=== PATIENT | male | born 1960 | race Caucasian/White ===

== ENCOUNTER 2025-08-02 16:28 | Emergency (ER) | payer MEDICARE, SELFPAY ==
[2025-08-02 16:52] VITALS: BP 141/77; PULSE 100; RESP 16; TEMP 36.7; O2SAT 98; BMI 29.5
--- OUTSIDE RECORDS SUMMARY | 2025-08-02 17:10 | XMS_ITS | Clinical Summary ---
Author Organization [facility] Address [address] [place] [address] Phone Care Team Providers Care Program Attendant Name Role Phone William JENSEN, Pranay Primary Care Provider + [phone] Soumya JENSEN, Colin Zhu Unavailable + [phone] Reason for Visit and Chief Complaint The Chief Complaint is: 1st PO Right TKA Problems Includes: Problems addressed during this encounter and other active Problems All Visits Onset Date Resolved Date Provider Condition S tatus Joint Pain Right Knee 05/24/2021 Colin Dooley MD Active Last Documented On 1 9:14AM ; [facility] Plan of Treatment overall the patient is very pleased with his knee surgery, finishing up physical therapy next week. he was encouraged to ease into activities such as golf, traveling walking, gym. We will plan for follow-up one year postop - Last Documented On 10/21/2022 9:22AM ; [facility] Assessments Includes: Assessments from this encounter Findings 11 weeks status post right TKA - Last Documented On 10/21/2022 9:22AM ; [facility] Medical Equipment - Implanted Devices Includes: Current Devices No Medical Equipment Recorded Medications Includes: Medications discussed during this encounter and other current Medications Current Medications (continue as prescribed) Atorvastatin Calcium 20 MG Oral Tablet 07/22/2023 Pr ovider: Pranay Thomas MD Diagnosis: Last Documented On 3 8:57AM By Trevor Boss ; [facility], [facility] Past Medications on file Acetaminophen 500 MG Oral Tablet 08/12/2022 - 09/11/2022 Provider: Colin Dooley MD Diagnosis: 2 three times a day Last Documented On 2 1:16PM By Filiberto Dooley ; [facility], [facility] Aspirin 81 MG Oral Tablet Delayed Release 08/12/2022 - 09/23/2022 Provider: Colin Dooley MD Diagnosis: twice a day Last Documented On 1:32PM By Filiberto Dooley ; [facility] Cefadroxil 500 MG Oral Capsule 08/12/2022 - 08/15/2022 Provider: Colin hinojosa MD Diagnosis: twice a day Last Documented On 1:32PM By Filiberto Dooley ; [facility] Colace 100 MG Oral Capsule 08/12/2022 - 11/10/2022 Provider: Colin hinojosa MD Diagnosis: 1-2 tabs daily Last Documented On 1:32PM By Filiberto Dooley ; [facility] Meloxicam 15 MG Oral Tablet 08/12/2022 - 09/11/2022 Provider: Colin hinojosa MD Diagnosis: once a day Last Documented On 1:32PM By Filiberto Dooley ; [facility] Ondansetron HCl 4 MG Oral Tablet 08/12/2022 - 08/17/2022 Provider: Colin Dooley MD Diagnosis: [id number] Last Documented On 1:32PM By Filiberto Dooley ; [facility] oxyCODONE HCl 5 MG Oral Tablet 08/12/2022 - 08/17/2022 Provider: Colin hinojosa MD Diagnosis: 1-2 po q 4-6h Last Documented On 1:32PM By Filiberto Dooley ; [facility] traMADol HCl 50 MG Oral Tablet 08/12/2022 - 08/17/2022 Provider: Colin hinojosa MD Diagnosis: 1-2 po q 4-6h Last Documented On 1:32PM By Filiberto Dooley ; [facility] Diclofenac Sodium 75 MG Oral Tablet Delayed Release 10/29/2021 - 12/28/2021 Provider: Colin hinojosa MD Diagnosis: once a day with food Last Documented On 9:36AM By Pranay Wright ; [facility] Diclofenac Sodium 75 MG Oral Tablet Delayed Release 10/07/2021 - 11/06/2021 Provider: Colin hinojosa MD Diagnosis: twice a day Last Documented On 2 3:11PM By Filiberto Dooley ; [facility] Medications Administered Includes: Administered Medications from this encounter No Administered Medications Recorded Results Includes: Results discussed during this encounter No Results Recorded For Specified Dates History of Present Illness Includes: History of Present Illness from this encounter CINDY Landers is a 62 year old male. - Allergy list reviewed - Problem list reviewed - Medication list reviewed Social History Description Last Updated Not exercising regularly 07/28/2023 Last Documented On 3 8:39AM ; [facility] Not using alcohol 07/28/2023 Last Documented On 3 8:39AM ; [facility] Not using drugs 07/28/2023 Last Documented On 3 8:39AM ; [facility] Tobacco non-user 10/21/2022 Last Documented On 3 9:22AM ; [facility] No recent change in diet 10/21/2022 Last Documented On 3 9:22AM ; [facility] Not a current smoker. 10/21/2022 Last Documented On 3 9:22AM ; [facility] Caffeine use 05/24/2021 Last Documented On 3 8:39AM ; [facility] Smoking Status Unknown Procedures and Surgical History Includes: Procedures from this encounter Procedures Code Diagnosis Performing Provider Service L ocation Service Date use of tobacco assessment performed 1000F Last Documented On 3 8:39AM ; [facility] body mass index not documented system reason 300 8F Last Documented On 3 9:05AM ; [facility] Medical History Includes: Medical History addressed during this encounter Description Last Updated Recent immunization for flu 07/15/2022 1 11/05/2021 Last Documented On 3 8:39AM ; [facility] No recent immunization for pneumococcal pneumonia 05/24/2021 Last Documented On 3 8:39AM ; [facility] Sleep Apnea 05/24/2021 Last Documented On 3 8:39AM ; [facility] Family History Includes: Family History addressed during this encounter Description Last Updated Family history of cancer 05/24/2021 Last Documented On 3 8:39AM ; [facility] Review of Systems Includes: Review of Systems from this encounter Systemic: Not feeling tired, no recent weight loss, and no recent weight gain. Head: No headache and no sinus pain. Eyes: No vision problems, no Cataracts, no Glasses/Contacts, and no Glaucoma. Otolaryngeal: No hearing loss and no tinnitus. Cardiovascular: No chest pain or discomfort, no palpitations, no Hypertension, and no High Cholesterol. Pulmonary: No daytime asthma symptoms and no chronic cough. No wheezing. Gastrointestinal: No heartburn and no abdominal pain. No Indigestion, no Acid Reflux, no Peptic Ulcer, no GI Stomach Bleed, and no Ulcers. Endocrine: No hot flashes, no muscle weakness, no Diabetes, no Hypothyroid, and no Hyperthyroid. Hematologic: No easy bleeding, no tendency for easy bruising, and no Anemia. Musculoskeletal: No Arthritis and no lower back pain. No soft tissue swelling and no localized joint pain. Neurological: No dizziness, no convulsions, and no numbness. Psychological: No anxiety, no emotional lability, no depression, and no insomnia. Not crying for no reason. Skin: No dry skin. No Ulcers, no Scars, and no rash. Allergic and Immunologic: No complaint of seasonal allergic reaction. Reviewed on 10-21-2022 Mental Status Includes: Mental Status from this encounter Description No anxiety Functional Status Includes: Functional Status from this encounter No Functional Status Recorded Physical Exam Includes: Physical Exam from this encounter Allergies Includes: Active Allergies No Known Allergies Encounters Encounter Provider Location Date Check-In Time Check- Out Time Diagnosis Post Op Aldo Olivas PA-C [facility] 3 8:36AM 9:23AM Insurance Includes: Active Insurance Policies Plan Name Member ID Group # Subscriber Relationship Effect blake Dates - [facility] [id number] Bobby Landers Jr [facility] 09/14/2020 - Unknown Clinical Notes Includes: Clinical Notes from this encounter * Progress note Date Encounter Last Documented by 10/21/2022 Post Op Last documented on 10/21/2022; 9:22 AM, Aldo Olivas PA-C; [facility] Active Problems & Conditions - Joint Pain in the Right Knee Chief Complaint The Chief Complaint is: 1st PO Right TKA. Referred Here Referred by. History of Present Illness Bobby Landers is a 62 year old male. - Allergy list reviewed - Problem list reviewed - Medication list reviewed Current Medication - Colace 100 MG Oral Capsule 1-2 tabs daily, 30 days, 2 refills Past Medical/Surgical History Reported: Immunization History: Recent immunization for flu 07/15/2022. No recent immunization for pneumococcal pneumonia. Diagnoses: Sleep Apnea Social History Not a current smoker. Current diet: No recent change in diet. Caffeine use: Caffeine use. Tobacco use: Tobacco non-user. Alcohol: Not using alcohol. Drug Use: Not using drugs. Habits: Not exercising regularly. Allergies - No Known Allergies Family History Cancer Review Of Systems Systemic: Not feeling tired, no recent weight loss, and no recent weight gain. Head: No headache and no sinus pain. Eyes: No vision problems, no Cataracts, no Glasses/Contacts, and no Glaucoma. Otolaryngeal: No hearing loss and no tinnitus. Cardiovascular: No chest pain or discomfort, no palpitations, no Hypertension, and no High Cholesterol. Pulmonary: No daytime asthma symptoms and no chronic cough. No wheezing. Gastrointestinal: No heartburn and no abdominal pain. No Indigestion, no Acid Reflux, no Peptic Ulcer, no GI Stomach Bleed, and no Ulcers. Endocrine: No hot flashes, no muscle weakness, no Diabetes, no Hypothyroid, and no Hyperthyroid. Hematologic: No easy bleeding, no tendency for easy bruising, and no Anemia. Musculoskeletal: No Arthritis and no lower back pain. No soft tissue swelling and no localized joint pain. Neurological: No dizziness, no convulsions, and no numbness. Psychological: No anxiety, no emotional lability, no depression, and no insomnia. Not crying for no reason. Skin: No dry skin. No Ulcers, no Scars, and no rash. Allergic and Immunologic: No complaint of seasonal allergic reaction. Reviewed on 10-21-2022 Physical Findings Incision well healed, well-appearing scar Mild residual swelling, mild effusion Knee extension 0- Knee flexion 127- TA/Gastroc/Quad firing Sensation intact to light touch throughout Palpable pulses DP/PT Assessment 11 weeks status post right TKA Plan overall the patient is very pleased with his knee surgery, finishing up physical therapy next week. he was encouraged to ease into activities such as golf, traveling walking, gym. We will plan for follow-up one year postop Notes This dictation was done with voice recognition software and may contain errors and omissions. Practice Management Use of tobacco assessment performed; Body mass index not documented system reason. Care Team - Pranay Thomas MD - RESOURCE ROOM SPECIAL EDUCATION TEACHER
--- OUTSIDE RECORDS SUMMARY | 2025-08-02 17:10 | XMS_ITS | Clinical Summary ---
Author Organization [facility] Address [address] [place] [address] Phone Care Team Providers Care Language Interpreter Name Role Phone William JENSEN, Pranay Primary Care Provider [phone] Soumya JENSEN, Colin Zhu Unavailable + [phone] Reason for Referral Date Encounter Description Provider Reason for Referral 09/04/22 Post Op Aldo Olivas PA-C Referral To Physician - see pcp for bp Reason for Visit and Chief Complaint The Chief Complaint is: 1st PO Right TKA Problems Includes: Problems addressed during this encounter and other active Problems All Visits Onset Date Resolved Date Provider Condition S tatus Joint Pain Right Knee 05/24/2021 Colin Dooley MD Active Last Documented On 1 9:14AM ; [facility] Plan of Treatment overall the patient is pleased with his progress, expressed my concern with his lack of flexion today, he is limited to 95? for me, reports 104? with physical therapy. We discussed using pain medication as a tool for achieving further progress with physical therapy. He is at risk for permanent stiffness to satisfaction. He reports that he is following her 200 feet per day rule - Last Documented On 09/04/2022 2:08PM ; [facility] Instructions to patient Lose weight Last Documented On 2 1:35PM ; [facility] Assessments Includes: Assessments from this encounter Findings 3 weeks status post right TKA - Last Documented On 09/04/2022 2:08PM ; [facility] Instructions Includes: Instructions from this encounter Instructions to patient Lose weight Last Documented On 2 1:35PM ; [facility] Medical Equipment - Implanted Devices Includes: Current Devices No Medical Equipment Recorded Medications Includes: Medications discussed during this encounter and other current Medications Current Medications (continue as prescribed) Atorvastatin Calcium 20 MG Oral Tablet 07/22/2023 Pr ovider: Pranay Thomas MD Diagnosis: Last Documented On 8:57AM By Trevor Boss ; [facility] Past Medications on file Acetaminophen 500 MG Oral Tablet 08/12/2022 - 09/11/2022 Provider: Colin Dooley MD Diagnosis: 2 three times a day Last Documented On 1:16PM By Filiberto Dooley ; [facility] Aspirin 81 MG Oral Tablet Delayed Release 08/12/2022 - 09/23/2022 Provider: Colin Dooley MD Diagnosis: twice a day Last Documented On 1:32PM By Filiberto Dooley ; [facility] Cefadroxil 500 MG Oral Capsule 08/12/2022 - 08/15/2022 Provider: Colin hinojosa MD Diagnosis: twice a day Last Documented On 1:32PM By Filiberto Dooley ; [facility] Colace 100 MG Oral Capsule 08/12/2022 - 11/10/2022 Provider: Colin hinojosa MD Diagnosis: 1-2 tabs daily Last Documented On 1:32PM By Filiberto Dooley ; [facility] Meloxicam 15 MG Oral Tablet 08/12/2022 - 09/11/2022 Provider: Colin hinojosa MD Diagnosis: once a day Last Documented On 1:32PM By Filiberto Dooley ; [facility] Ondansetron HCl 4 MG Oral Tablet 08/12/2022 - 08/17/2022 Provider: Colin Dooley MD Diagnosis: [id number] Last Documented On 1:32PM By Filiberto Dooley ; [facility] oxyCODONE HCl 5 MG Oral Tablet 08/12/2022 - 08/17/2022 Provider: Colin hinojosa MD Diagnosis: 1-2 po q 4-6h Last Documented On 1:32PM By Filiberto Dooley ; [facility] traMADol HCl 50 MG Oral Tablet 08/12/2022 - 08/17/2022 Provider: Colin hinojosa MD Diagnosis: 1-2 po q 4-6h Last Documented On 2 1:32PM By Filiberto Dooley ; [facility] Diclofenac Sodium 75 MG Oral Tablet Delayed Release 10/29/2021 - 12/28/2021 Provider: Colin hinojosa MD Diagnosis: once a day with food Last Documented On 2 9:36AM By Pranay Wright ; [facility] Diclofenac Sodium 75 MG Oral Tablet Delayed Release 10/07/2021 - 11/06/2021 Provider: Colin hinojosa MD Diagnosis: twice a day Last Documented On 2 3:11PM By Filiberto Dooley ; [facility] Medications Administered Includes: Administered Medications from this encounter No Administered Medications Recorded Vital Signs Includes: Vital Signs from this encounter Vital Name 09/04/2022 01:46P Blood Pressure Sitting (mmHg) 124/76 Pulse Rate-Sitting (bpm) 103 Height (in) 65 Weight (lb) 190 Body Mass Index 31.6 Body Surface Area 1.9 Note: ck Last Documented: On 09/04/2022 1:46PM ; [facility] Results Includes: Results discussed during this encounter No Results Recorded For Specified Dates History of Present Illness Includes: History of Present Illness from this encounter CINDY Landers is a 61 year old male. - Allergy list reviewed - Problem list reviewed - Medication list reviewed Social History Description Last Updated Not exercising regularly 07/28/2023 Last Documented On 2 1:35PM ; [facility] Not using alcohol 07/28/2023 Last Documented On 2 1:35PM ; [facility] Not using drugs 07/28/2023 Last Documented On 2 1:35PM ; [facility] Tobacco non-user 09/04/2022 Last Documented On 2 2:08PM ; [facility] No recent change in diet 09/04/2022 Last Documented On 2 2:08PM ; [facility] Not a current smoker. 09/04/2022 Last Documented On 2 2:08PM ; [facility] Non-smoker 05/24/2021 Last Documented On 2 1:35PM ; [facility] Caffeine use 05/24/2021 Last Documented On 2 1:35PM ; [facility] No recent change in diet 05/24/2021 Last Documented On 2 1:35PM ; [facility] Not a current smoker. 05/24/2021 Last Documented On 2 1:35PM ; [facility] Smoking Status Unknown Procedures and Surgical History Includes: Procedures from this encounter Procedures Code Diagnosis Performing Provider Service L ocation Service Date use of tobacco assessment performed 1000F Last Documented On 2 1:35PM ; [facility] referral to physician see pcp for bp Last Documented On 2 1:35PM ; [facility] Medical History Includes: Medical History addressed during this encounter Description Last Updated Recent immunization for flu 07/15/2022 1 11/05/2021 Last Documented On 2 2:08PM ; [facility] No recent immunization for pneumococcal pneumonia 05/24/2021 Last Documented On 2 1:35PM ; [facility] Sleep Apnea 05/24/2021 Last Documented On 2 1:35PM ; [facility] Family History Includes: Family History addressed during this encounter Description Last Updated Family history of cancer 05/24/2021 Last Documented On 2 1:35PM ; [facility] Review of Systems Includes: Review of Systems [...] Immunologic: No complaint of seasonal allergic reaction. Mental Status Includes: Mental Status from this encounter Description No anxiety Functional Status Includes: Functional Status from this encounter No Functional Status Recorded Physical Exam Includes: Physical Exam from this encounter Immunizations Includes: Immunizations addressed during this encounter Vaccine Dose # Date Site Reaction(s) Status Source Influenza 1 07/15/2022 Complete (Reported) Patient Last Documented On 2 1:46PM ; [facility] PCV (Pneumovax 23) 1 09/04/2022 Complete (Refused - Patient objection) [facility] Last Documented On 2 1:46PM ; [facility] Allergies Includes: Active Allergies No Known Allergies Encounters Encounter Provider Location Date Check-In Time Check- Out Time Diagnosis Post Op Aldo Olivas PA-C [facility] 2 1:35PM 2:18PM Insurance Includes: Active Insurance Policies Plan Name Member ID Group # Subscriber Relationship Effect blake Dates 1 - [facility] [id number] Bobby Landers Self 09/14/2020 - Unknown Clinical Notes Includes: Clinical Notes from this encounter * Progress note Date Encounter Last Documented by 09/04/2022 Post Op Last documented on 09/04/2022; 2:08 PM, Aldo Olivas PA-C; [facility] Active Problems & Conditions - Joint Pain in the Right Knee Chief Complaint The Chief Complaint is: 1st PO Right TKA. Referred Here Referred by. History of Present Illness Bobby Landers is a 61 year old male. - Allergy list reviewed - Problem list reviewed - Medication list reviewed Current Medication - Acetaminophen 500 MG Oral Tablet 2 three times a day, 30 days, 0 refills - Aspirin 81 MG Oral Tablet Delayed Release twice a day, 42 days, 0 refills - Colace 100 MG Oral Capsule 1-2 tabs daily, 30 days, 2 refills - Meloxicam 15 MG Oral Tablet once a day, 30 days, 0 refills Past Medical/Surgical History Reported: Immunization History: Recent immunization for flu 07/15/2022. No recent immunization for pneumococcal pneumonia. Diagnoses: Sleep Apnea Social History Not a current smoker. Not a current smoker. Current diet: No recent change in diet. No recent change in diet. Caffeine use: Caffeine use. Tobacco use: Tobacco non-user and non-smoker. Alcohol: Not using alcohol. Drug Use: Not [...] Immunologic: No complaint of seasonal allergic reaction. Physical Findings - Vitals taken 09/04/2022 01:46 pm ck BP-Sitting 124/76 mmHg Pulse Rate-Sitting 103 bpm Height 65 in Weight 190 lbs Body Mass Index 31.6 kg/m2 Body Surface Area 1.9 m2 Standard Measurements: - Patient was overweight. Incision well healed without erythema/purulence/drainage Mild residual swelling, mild to moderate effusion Knee extension 2- Knee flexion 95- TA/Gastroc/Quad firing Sensation intact to light touch throughout Palpable pulses DP/PT Tests three-view x-ray of the right knee taken today demonstrates well-appearing TKA Assessment 3 weeks status post right TKA Therapy - Referral to physician see pcp for bp. Vaccinations - Influenza Dose #1 Status: Prev Hist Date: 07/15/2022 - PCV (Pneumovax 23) Dose #1 Status: Refused Patient Objection Date: 09/04/2022 Counseling/Education - Lose weight Plan overall the patient is pleased with his progress, expressed my concern with his lack of flexion today, he is limited to 95- for me, reports 104- with physical therapy. We discussed using pain medication as a tool for achieving further progress with physical therapy. He is at risk for permanent stiffness to satisfaction. He reports that he is following her 200 feet per day rule Notes This dictation was done with voice recognition software and may contain errors and omissions. Practice Management Use of tobacco assessment performed. Care Team - Pranay Thomas MD - CORPORATE SCHEDULER
--- OUTSIDE RECORDS SUMMARY | 2025-08-02 17:10 | XMS_ITS | Clinical Summary ---
Author Organization [facility] Address [address] [place] [address] Phone Care Team Providers Care Turf Grower Name Role Phone William JENSEN, Pranay Primary Care Provider + [phone] Soumya JENSEN, Colin Mathews + [phone] Reason for Visit and Chief Complaint The Chief Complaint is: 1st PO Right TKA Problems Includes: Problems addressed during this encounter and other active Problems All Visits Onset Date Resolved Date Provider Condition S tatus Joint Pain Right Knee 05/24/2021 Colin Dooley MD Active Last Documented On 1 9:14AM ; [facility] Plan of Treatment overall the patient is pleased with his progress, his range of motion is improving. Today we discussed the importance of continued efforts with physical therapy. We will plan for follow-up4 weeks for reevaluation - Last Documented On 12/02/2023 6:54PM ; [facility] Instructions to patient Lose weight Last Documented On 3 9:49AM ; [facility] Assessments Includes: Assessments from this encounter Findings - Overweight - Last Documented On 12/02/2023 6:54PM ; [facility] 6 week status post right TKA - Last Documented On 12/02/2023 6:54PM ; [facility], [facility] Instructions Includes: Instructions from this encounter Instructions to patient Lose weight Last Documented On 3 9:49AM ; [facility], [facility] Medical Equipment - Implanted Devices Includes: Current Devices No Medical Equipment Recorded Medications Includes: Medications discussed during this encounter and other current Medications Current Medications (continue as prescribed) Atorvastatin Calcium 20 MG Oral Tablet 07/22/2023 Pr ovider: Pranay Thomas MD Diagnosis: Last Documented On 3 8:57AM By Trevor Boss ; [facility] Past Medications on file Acetaminophen 500 MG Oral Tablet 08/12/2022 - 09/11/2022 Provider: Colin Dooley MD Diagnosis: 2 three times a day Last Documented On 1:16PM By Filiberto Dooley ; [facility], [facility] Aspirin 81 MG Oral Tablet Delayed Release 08/12/2022 - 09/23/2022 Provider: Colin Dooley MD Diagnosis: twice a day Last Documented On 1:32PM By Filiberto Dooley ; [facility], [facility] Cefadroxil 500 MG Oral Capsule 08/12/2022 - 08/15/2022 Provider: Colin hinojosa MD Diagnosis: twice a day Last Documented On 1:32PM By Filiberto Dooley ; [facility], [facility] Colace 100 MG Oral Capsule 08/12/2022 - 11/10/2022 Provider: Colin hinojosa MD Diagnosis: 1-2 tabs daily Last Documented On 1:32PM By Filiberto Dooley ; [facility], [facility] Meloxicam 15 MG Oral Tablet 08/12/2022 - 09/11/2022 Provider: Colin hinojosa MD Diagnosis: once a day Last Documented On 1:32PM By Filiberto Dooley ; [facility], [facility] Ondansetron HCl 4 MG Oral Tablet 08/12/2022 - 08/17/2022 Provider: Colin Dooley MD Diagnosis: [id number] Last Documented On 1:32PM By Filiberto Dooley ; [facility], [facility] oxyCODONE HCl 5 MG Oral Tablet 08/12/2022 - 08/17/2022 Provider: Colin hinojosa MD Diagnosis: 1-2 po q 4-6h Last Documented On 1:32PM By Filiberto Dooley ; [facility], [facility] traMADol HCl 50 MG Oral Tablet 08/12/2022 - 08/17/2022 Provider: Colin hinojosa MD Diagnosis: 1-2 po q 4-6h Last Documented On 1:32PM By Filiberto Dooley ; [facility] Diclofenac Sodium 75 MG Oral Tablet Delayed Release 10/29/2021 - 12/28/2021 Provider: Colin hinojosa MD Diagnosis: once a day with food Last Documented On 2 9:36AM By Pranay Wright ; [facility] Diclofenac Sodium 75 MG Oral Tablet Delayed Release 10/07/2021 - 11/06/2021 Provider: Colin hinojosa MD Diagnosis: twice a day Last Documented On 2 3:11PM By Filiberto Dooley ; [facility] Medications Administered Includes: Administered Medications from this encounter No Administered Medications Recorded Vital Signs Includes: Vital Signs from this encounter Vital Name 09/22/2022 09:49A Height (in) 65 Weight (lb) 190 Body Mass Index 31.6 Body Surface Area 1.9 Note: dp Last Documented: On 09/22/2022 9:50AM ; [facility] Results Includes: Results discussed during this encounter No Results Recorded For Specified Dates History of Present Illness Includes: History of Present Illness from this encounter CINDY Landers is a 61 year old male. - Allergy list reviewed - Problem list reviewed - Medication list reviewed Social History Description Last Updated Not exercising regularly 07/28/2023 Last Documented On 3 9:49AM ; [facility] Not using alcohol 07/28/2023 Last Documented On 3 9:49AM ; [facility] Not using drugs 07/28/2023 Last Documented On 3 9:49AM ; [facility] No recent change in diet 07/28/2023 Last Documented On 3 9:49AM ; [facility] Not a current smoker. 07/28/2023 Last Documented On 3 9:49AM ; [facility] Tobacco non-user 10/21/2022 Last Documented On 3 9:49AM ; [facility] Non-smoker 05/24/2021 Last Documented On 3 9:49AM ; [facility] Caffeine use 05/24/2021 Last Documented On 3 9:49AM ; [facility] No recent change in diet 05/24/2021 Last Documented On 3 9:49AM ; [facility] Not a current smoker. 05/24/2021 Last Documented On 3 9:49AM ; [facility] Smoking Status Unknown Procedures and Surgical History Includes: Procedures from this encounter Procedures Code Diagnosis Performing Provider Service L ocation Service Date use of tobacco assessment performed 1000F Last Documented On 3 9:49AM ; [facility] review of medications documented 1160F Last Documented On 4 6:54PM ; [facility] Medical History Includes: Medical History addressed during this encounter Description Last Updated Recent immunization for flu 07/15/2022 1 11/05/2021 Last Documented On 3 9:49AM ; [facility] No recent immunization for pneumococcal pneumonia 05/24/2021 Last Documented On 3 9:49AM ; [facility] Sleep Apnea 05/24/2021 Last Documented On 3 9:49AM ; [facility] Family History Includes: Family History addressed during this encounter Description Last Updated Family history of cancer 05/24/2021 Last Documented On 3 9:49AM ; [facility] Review of Systems Includes: Review of Systems [...] Encounters Encounter Provider Location Date Check-In Time Check-Out Time Diagnosis Post Op Aldo Olivas PA-C [facility] 3 9:25AM 10:06AM Overweight Insurance Includes: Active Insurance Policies Plan Name Member ID Group # Subscriber Relationship Effect blake Dates 1 - [facility] [id number] Bobby Landers [facility] 09/14/2020 - Unknown Clinical Notes Includes: Clinical Notes from this encounter * Progress note Date Encounter Last Documented by 09/22/2022 Post Op Last documented on 12/02/2023; 6:54 PM, Aldo Olivas PA-C; [facility], [facility] Active Problems & Conditions - Joint Pain in the Right Knee Chief Complaint The Chief Complaint is: 1st PO Right TKA. Referred Here Referred by. History of Present Illness Bobby Landers is a 61 year old male. - Allergy list reviewed - Problem list reviewed - Medication list reviewed Current Medication - Aspirin 81 MG Oral Tablet Delayed [...] allergic reaction. Physical Findings - Vitals taken 09/22/2022 09:49 am dp Height 65 in Weight 190 lbs Body Mass Index 31.6 kg/m2 Body Surface Area 1.9 m2 Incision well healed, well-appearing scar Mild residual swelling, mild to moderate effusion Knee extension 2- Knee flexion 118- TA/Gastroc/Quad firing Sensation intact to light touch throughout Palpable pulses DP/PT Assessment - Overweight 6 week status post right TKA Counseling/Education - Lose weight Plan overall the patient is pleased with his progress, his range of motion is improving. Today we discussed the importance of continued efforts with physical therapy. We will plan for follow-up4 weeks for reevaluation Notes This dictation was done with voice recognition software and may contain errors and omissions. Practice Management Use of tobacco assessment performed Review of medications documented. Care Team - Pranay Thomas MD - LOOM TECHNICIAN
--- OUTSIDE RECORDS SUMMARY | 2025-08-02 17:10 | XMS_ITS ---
Care Plan - [facility], [facility] Created on: August 02, 2025 Bobby Landers Jr : 1960 Sex: Male Author Organization [facility] Address [address] [place] [address] Phone Care Team Providers Care Oil Field Operator Name Role Phone William JENSEN, Pranay Primary Care Provider + [phone] Soumya JENSEN, Colin Mathews + [phone]
--- OUTSIDE RECORDS SUMMARY | 2025-08-02 17:10 | XMS_ITS | Clinical Summary ---
Author Organization [facility] , [facility] Address [address] [place] [address] Phone Care Team Providers Care Metallurgical Specialist Name Role Phone William JENSEN, Pranay Primary Care Provider + [phone] Soumya JENSEN, Colin Mathews U navailable Reason for Visit and Chief Complaint BRACE FITTING Problems Includes: Problems addressed during this encounter and other active Problems All Visits Onset Date Resolved Date Provider Condition S tatus Joint Pain Right Knee 05/24/2021 Colin Dooley MD Active Last Documented On 1 9:14AM ; [facility] Plan of Treatment No Plan of Treatment Recorded Assessments Includes: Assessments from this encounter No Assessments Recorded Medical Equipment - Implanted Devices Includes: Current Devices No Medical Equipment Recorded Medications Includes: Medications discussed during this encounter and other current Medications Current Medications (continue as prescribed) Atorvastatin Calcium 20 MG Oral Tablet 07/22/2023 Pr ovider: Pranay Thomas MD Diagnosis: Last Documented On 3 8:57AM By Trevor Boss ; [facility] Medications Administered Includes: Administered Medications from this encounter No Administered Medications Recorded Results Includes: Results discussed during this encounter No Results Recorded For Specified Dates History of Present Illness Includes: History of Present Illness from this encounter No History of Present Illness Recorded Social History No Social History Recorded - Smoking Status Unknown Medical History Includes: Medical History addressed during this encounter No Medical History Recorded Family History Includes: Family History addressed during this encounter No Family History Recorded Review of Systems Includes: Review of Systems from this encounter No Review of Systems Recorded Mental Status Includes: Mental Status from this encounter No Mental Status Recorded Functional Status Includes: Functional Status from this encounter No Functional Status Recorded Physical Exam Includes: Physical Exam from this encounter No Physical Exam Recorded Allergies Includes: Active Allergies No Known Allergies Encounters Encounter Provider Location Date Check-In Time Check-Out Time Diagnosis BRACE FITTING Colin Dooley MD [facility] 2 9:33AM 11:59PM Insurance Includes: Active Insurance Policies Plan Name Member ID Group # Subscriber Relationship Effect blake Dates 1 - [facility] [id number] Bobby Landers Jr [facility] 09/14/2020 - Unknown Clinical Notes Includes: Clinical Notes from this encounter No Clinical Notes Recorded
--- OUTSIDE RECORDS SUMMARY | 2025-08-02 17:10 | XMS_ITS ---
Author [facility] Address [address] [place] [address] Phone Care Team Providers Care Electroplating Sales Representative Name Role Phone William JENSEN, Pranay Primary Care Provider + [phone] Soumya JENSEN, Colin Zhu Unavailable + [phone] Reason for Referral Date Encounter Description Provider Reason for Referral 09/04/22 Post Op Aldo Olivas PA-C Referral To Physician - see pcp for bp 12/12/21 Follow Up Colin hinojosa MD Referral To Physician - see pcp for bp 10/29/21 Follow Up Pranay Wright PA-C Refer ral To Physician - see pcp for bp 07/17/21 Follow Up Pranay Wright PA-C Refer ral To Physician - see pcp for bp 05/24/21 Physician Specified Colin Dooley MD Referral To Physician - see pcp for bp Problems Includes: Active, inactive, and resolved Problems All Visits Onset Date Resolved Date Provider Condition S tatus Joint Pain Right Knee 05/24/2021 Colin Dooley MD Active Last Documented On 1 9:14AM ; [facility] Plan of Treatment Instructions to patient Lose weight Last Documented On 3 8:59AM ; [facility] Lose weight Last Documented On 3 9:49AM ; [facility] Lose weight Last Documented On 2 1:35PM ; [facility] Lose weight Last Documented On 2 8:31AM ; [facility] Lose weight Last Documented On 2 8:54AM ; [facility] Lose weight Last Documented On 1 12:53PM ; [facility] Assessments Includes: Assessments for all patient encounters Findings Encounter Date Overweight Follow Up with Aldo Moy 07/28/2023 Last Documented On 3 9:11AM ; [facility] Overweight Post Op with Aldo Olivas PA-C 09/22/2022 Last Documented On 4 6:54PM ; [facility] Instructions Includes: Instructions for all patient encounters Instructions to patient Lose weight Last Documented On 3 8:59AM ; [facility] Lose weight Last Documented On 3 9:49AM ; [facility] Lose weight Last Documented On 2 1:35PM ; [facility] Lose weight Last Documented On 2 8:31AM ; [facility] Lose weight Last Documented On 2 8:54AM ; [facility] Lose weight Last Documented On 1 12:53PM ; [facility] Medical Equipment - Implanted Devices Includes: Current and historical Devices No Medical Equipment Recorded Medications Includes: Current and historical Medications Current Medications (continue as prescribed) Atorvastatin Calcium 20 MG Oral Tablet 07/22/2023 Pr ovider: rPanay Thomas MD Diagnosis: Last Documented On 3 8:57AM By Trevor Boss ; [facility] Past Medications on file Acetaminophen 500 MG Oral Tablet 08/12/2022 - 09/11/2022 Provider: Colin Dooley MD Diagnosis: 2 three times a day Last Documented On 2 1:16PM By Filiberto Dooley ; [facility], [facility] Aspirin 81 MG Oral Tablet Delayed Release 08/12/2022 - 09/23/2022 Provider: Colin Dooley MD Diagnosis: twice a day Last Documented On 2 1:32PM By Filiberto Dooley ; [facility], [facility] Cefadroxil 500 MG Oral Capsule 08/12/2022 - 08/15/2022 Provider: Colin hinojosa MD Diagnosis: twice a day Last Documented On 2 1:32PM By Filiberto Dooley ; [facility] Colace 100 MG Oral Capsule 08/12/2022 - 11/10/2022 Provider: Colin hinojosa MD Diagnosis: 1-2 tabs daily Last Documented On 2 1:32PM By Filiberto Dooley ; [facility] Meloxicam 15 MG Oral Tablet 08/12/2022 - 09/11/2022 Provider: Colin hinojosa MD Diagnosis: once a day Last Documented On 2 1:32PM By Filiberto Dooley ; [facility] Ondansetron HCl 4 MG Oral Tablet 08/12/2022 - 08/17/2022 Provider: Colin Dooley MD Diagnosis: [id number] Last Documented On 1:32PM By Filiberto Dooley ; [facility] oxyCODONE HCl 5 MG Oral Tablet 08/12/2022 - 08/17/2022 Provider: Colin hinojosa MD Diagnosis: 1-2 po q 4-6h Last Documented On 1:32PM By Filiberto Dooley ; [facility] traMADol HCl 50 MG Oral Tablet 08/12/2022 - 08/17/2022 Provider: Colin hinojosa MD Diagnosis: 1-2 po q 4-6h Last Documented On 1:32PM By Filiberto Dooley ; [facility] Diclofenac Sodium 75 MG Oral Tablet Delayed Release 10/29/2021 - 12/28/2021 Provider: Colin hinojosa MD Diagnosis: once a day with food Last Documented On 9:36AM By Pranay Wright ; [facility] Diclofenac Sodium 75 MG Oral Tablet Delayed Release 10/07/2021 - 11/06/2021 Provider: Colin hinojosa MD Diagnosis: twice a day Last Documented On 2 3:11PM By Filiberto Dooley ; [facility] Meloxicam 15 MG Oral Tablet 05/31/2021 - 10/29/2021 Provider: Colin hinojosa MD Diagnosis: once a day Last Documented On 8:57AM By Tete Gonzalez ; [facility] Medications Administered Includes: Administered Medications in patient's chart No Administered Medications Recorded Results Includes: Results from 08/02/2024 through 08/02/2025 No Results Recorded For Specified Dates History of Present Illness History of Present Illness not supported for this document type No History of Present Illness Recorded Social History Description Last Updated Exercising regularly 07/28/2023 Last Documented On 3 9:11AM ; [facility] Not using alcohol 07/28/2023 Last Documented On 3 9:11AM ; [facility] Not using drugs 07/28/2023 Last Documented On 3 9:11AM ; [facility] No recent change in diet 07/28/2023 Last Documented On 3 9:11AM ; [facility] Not a current smoker. 07/28/2023 Last Documented On 3 9:11AM ; [facility] Tobacco non-user 10/21/2022 Last Documented On 3 9:22AM ; [facility] Non-smoker 05/24/2021 Last Documented On 1 10:22AM ; [facility] Caffeine use 05/24/2021 Last Documented On 1 10:22AM ; [facility] No recent change in diet 05/24/2021 Last Documented On 1 10:22AM ; [facility] Not a current smoker. 05/24/2021 Last Documented On 1 10:22AM ; [facility] Smoking Status Unknown Procedures and Surgical History Surgical History Last Updated History of total knee arthroplasty 07/28 Last Documented On 3 9:11AM ; [facility] Medical History Includes: Medical History in patient's chart Description Last Updated Past medical history non-contributory Last Documented On 3 9:11AM ; [facility] Recent immunization for flu 07/15/2022 1 11/05/2021 Last Documented On 2 2:08PM ; [facility] No recent immunization for pneumococcal pneumonia 05/24/2021 Last Documented On 1 10:22AM ; [facility] Sleep Apnea 05/24/2021 Last Documented On 1 10:22AM ; [facility], [facility] Family History Includes: Family History in patient's chart Description Last Updated Family history of systemic hypertension 07/28/2023 Last Documented On 3 9:11AM ; [facility] Family history of cancer 05/24/2021 Last Documented On 1 10:22AM ; [facility] Review of Systems Review of Systems not supported for this document type No Review of Systems Recorded Mental Status Description No anxiety Functional Status No Functional Status Recorded Physical Exam Physical Exam not supported for this document type No Physical Exam Recorded Immunizations Includes: Immunizations in patient's chart Vaccine Dose # Date Site Reaction(s) Status Source Influenza 1 07/15/2022 Complete (Reported) Patient Last Documented On 2 1:46PM ; [facility] (Pneumovax 23) 1 09/04/2022 Complete (Refused - Patient objection) [facility] Last Documented On 2 1:46PM ; [facility] Allergies Includes: Active, inactive, and resolved Allergies No Known Allergies Insurance Includes: Active Insurance Policies Plan Name Member ID Group # Subscriber Relationship Effect blake Dates 1 - [facility] [id number] Landers Jr [facility] 09/14/2020 - Unknown Clinical Notes Includes: Signed Clinical Notes starting from 08/28/2022 No Clinical Notes Recorded
--- OUTSIDE RECORDS SUMMARY | 2025-08-02 17:10 | XMS_ITS | Clinical Summary ---
Author Organization [facility] Address [address] [place] [address] Phone Care Team Providers Care [employer] Equipment Tender Name Role Phone William JENSEN, Pranay Primary Care Provider + [phone] Soumya JENSEN, Colin Mathews [phone] Reason for Visit and Chief Complaint The Chief Complaint is: Right TKA annual FU Problems Includes: Problems addressed during this encounter and other active Problems All Visits Onset Date Resolved Date Provider Condition S tatus Joint Pain Right Knee 05/24/2021 Colin Dooley MD Active Last Documented On 1 9:14AM ; [facility], [facility] Plan of Treatment Patient very pleased with knee surgery, no complaints today. Follow-up 5-year postop and - Last Documented On 07/28/2023 9:11AM ; [facility], [facility] Instructions to patient Lose weight Last Documented On 3 8:59AM ; [facility], [facility] Assessments Includes: Assessments from this encounter Findings - Overweight - Last Documented On 07/28/2023 9:11AM ; [facility], [facility] 1 year status post right TKA - Last Documented On 07/28/2023 9:11AM ; [facility], [facility] Instructions Includes: Instructions from this encounter Instructions to patient Lose weight Last Documented On 3 8:59AM ; [facility], [facility] Medical Equipment - Implanted Devices Includes: Current Devices No Medical Equipment Recorded Medications Includes: Medications discussed during this encounter and other current Medications Current Medications (continue as prescribed) Atorvastatin Calcium 20 MG Oral Tablet 07/22/2023 Pr ovider: Pranay Thomas MD Diagnosis: Last Documented On 3 8:57AM By Trevor Boss ; [facility], [facility] Past Medications on file Acetaminophen 500 MG Oral Tablet 08/12/2022 - 09/11/2022 Provider: Colin Dooley MD Diagnosis: 2 three times a day Last Documented On 1:16PM By Filiberto Dooley ; [facility] Aspirin 81 MG Oral Tablet Delayed Release 08/12/2022 - 09/23/2022 Provider: Colin Dooley MD Diagnosis: twice a day Last Documented On 1:32PM By Filiberto Dooley ; [facility] Cefadroxil 500 MG Oral Capsule 08/12/2022 - 08/15/2022 Provider: Colin hinojosa MD Diagnosis: twice a day Last Documented On 1:32PM By Filiberto Dooley ; [facility] Colace 100 MG Oral Capsule 08/12/2022 - 11/10/2022 Provider: Colin hinojosa MD Diagnosis: 1-2 tabs daily Last Documented On 1:32PM By Filiberto Dooley ; [facility] Meloxicam 15 MG Oral Tablet 08/12/2022 - 09/11/2022 Provider: Colin hinojosa MD Diagnosis: once a day Last Documented On 1:32PM By Filiberto Dooley ; [facility] Ondansetron HCl 4 MG Oral Tablet 08/12/2022 - 08/17/2022 Provider: Colin Dooley MD Diagnosis: [id number] Last Documented On 1:32PM By Filiberto Dooley ; [facility] oxyCODONE HCl 5 MG Oral Tablet 08/12/2022 - 08/17/2022 Provider: Colin hinojosa MD Diagnosis: 1-2 po q 4-6h Last Documented On 1:32PM By Filiberto Dooley ; [facility] traMADol HCl 50 MG Oral Tablet 08/12/2022 - 08/17/2022 Provider: Colin hinojosa MD Diagnosis: 1-2 po q 4-6h Last Documented On 1:32PM By Filiberto Dooley ; [facility] Diclofenac Sodium 75 MG Oral Tablet Delayed Release 10/29/2021 - 12/28/2021 Provider: Colin hinojosa MD Diagnosis: once a day with food Last Documented On 2 9:36AM By Pranay Wright ; [facility] Diclofenac Sodium 75 MG Oral Tablet Delayed Release 10/07/2021 - 11/06/2021 Provider: Colin hinojosa MD Diagnosis: twice a day Last Documented On 2 3:11PM By Filiberto Dooley ; [facility] Medications Administered Includes: Administered Medications from this encounter No Administered Medications Recorded Vital Signs Includes: Vital Signs from this encounter Vital Name 07/28/2023 08:53A Height (in) 65 Weight (lb) 194 Body Mass Index 32.3 Body Surface Area 2 Last Documented: On 07/28/2023 8:53AM ; [facility] Results Includes: Results discussed during this encounter No Results Recorded For Specified Dates History of Present Illness Includes: History of Present Illness from this encounter CINDY Landers is a 62 year old male. - Allergy list reviewed - Problem list reviewed - Medication list reviewed - Patient pain level from 1-10: 1 - No previous treatment. Social History Description Last Updated Exercising regularly 07/28/2023 Last Documented On 3 9:11AM ; [facility] Not using alcohol 07/28/2023 Last Documented On 3 9:11AM ; [facility] Not using drugs 07/28/2023 Last Documented On 3 9:11AM ; [facility] No recent change in diet 07/28/2023 Last Documented On 3 9:11AM ; [facility] Not a current smoker. 07/28/2023 Last Documented On 3 9:11AM ; [facility] Tobacco non-user 10/21/2022 Last Documented On 3 8:57AM ; [facility] Non-smoker 05/24/2021 Last Documented On 3 8:57AM ; [facility] Caffeine use 05/24/2021 Last Documented On 3 8:57AM ; [facility] Smoking Status Unknown Procedures and Surgical History Includes: Procedures from this encounter Procedures Code Diagnosis Performing Provider Service L ocation Service Date use of tobacco assessment performed 1000F Last Documented On 3 8:57AM ; [facility], [facility] review of medications documented 1160F Last Documented On 3 8:59AM ; [facility] body mass index not documented system reason 300 [id number] Last Documented On 3 8:57AM ; [facility] an X-ray was performed 07/28/[address] [facility] [id number] Last Documented On 3 8:59AM ; [facility] Surgical History Last Updated History of total knee arthroplasty 07/28 Last Documented On 3 9:11AM ; [facility] Medical History Includes: Medical History addressed during this encounter Description Last Updated Past medical history non-contributory Last Documented On 3 9:11AM ; [facility] Recent immunization for flu 07/15/2022 1 11/05/2021 Last Documented On 3 8:57AM ; [facility] Sleep Apnea 05/24/2021 Last Documented On 3 8:57AM ; [facility] Family History Includes: Family History addressed during this encounter Description Last Updated Family history of systemic hypertension 07/28/2023 Last Documented On 3 9:11AM ; [facility] Family history of cancer 05/24/2021 Last Documented On 3 8:57AM ; [facility] Review of Systems Includes: Review of Systems from this encounter Systemic: Not feeling tired, no recent weight loss, and no recent weight gain. Head: No headache and no sinus pain. Eyes: No vision problems and no Cataracts. Glasses/Contacts. No Glaucoma. Otolaryngeal: No hearing loss and no [...] Location Date Check-In Time Check-Out Time Diagnosis Follow Up Aldo Olivas PA-C [facility] 3 8:29AM 9:10AM Overweight Insurance Includes: Active Insurance Policies Plan Name Member ID Group # Subscriber Relationship Effect blake Dates 1 - [facility] [id number] Bobby Landers [facility] 09/14/2020 - Unknown Clinical Notes Includes: Clinical Notes from this encounter * Progress note Date Encounter Last Documented by 07/28/2023 Follow Up Last documented on 07/28/2023; 9:11 AM, Aldo Olivas PA-C; [facility], [facility] Active Problems & Conditions - Joint Pain in the Right Knee Chief Complaint The Chief Complaint is: Right TKA annual FU. Referred Here Referred by. History of Present Illness Bobby Landers is a 62 year old male. - Allergy list reviewed - Problem list reviewed - Medication list reviewed - Patient pain level from 1-10: 1 - No previous treatment. Current Medication - Atorvastatin Calcium 20 MG Oral Tablet 90 days, 0 refills Past Medical/Surgical History Reported: Immunization History: Recent immunization for flu 07/15/2022. Diagnoses: Sleep Apnea Past medical history non-contributory. Surgical: - Total knee arthroplasty Social History Not a current smoker. Current diet: No recent change in diet. Caffeine use: Caffeine use. Tobacco use: Tobacco non-user and non-smoker. Alcohol: Not using alcohol. Drug Use: Not using drugs. Habits: Exercising regularly. Allergies - No Known Allergies Family History Cancer Systemic hypertension Review Of Systems Systemic: Not feeling tired, no recent weight loss, and no recent weight gain. Head: No headache and no sinus pain. Eyes: No vision problems and no Cataracts. Glasses/Contacts. No Glaucoma. Otolaryngeal: No hearing loss and no [...] allergic reaction. Reviewed on 10-21-2022 Physical Findings - Vitals taken 07/28/2023 08:53 am Height 65 in Weight 194 lbs Body Mass Index 32.3 kg/m2 Body Surface Area 2 m2 Incision well healed, Well-appearing scar no swelling Knee extension 3 degrees Knee flexion 110 degrees TA/Gastroc/Quad firing Sensation intact to light touch throughout Palpable pulses DP/PT Tests Three-view x-ray of the right knee taken today demonstrates well-appearing TKA without signs of loosening or subsidence Assessment - Overweight 1 year status post right TKA Previous Tests Imaging: X-Ray: An X-ray was performed 07/28/[address] [facility]. Counseling/Education - Lose weight Plan Patient very pleased with knee surgery, no complaints today. Follow-up 5-year postop and Notes This dictation was done with voice recognition software and may contain errors and omissions. Practice Management Use of tobacco assessment performed Review of medications documented; Body mass index not documented system reason. Care Team - Pranay Thomas MD - [facility]
--- OUTSIDE RECORDS SUMMARY | 2025-08-02 17:10 | XMS_ITS | Data Portability ---
Author Organization [facility] ROBERT Fregoso [facility] CLOSED Address [address] [place] [address] Assessment No assessment recorded. Plan of Treatment Reminders Order Date Submit Date Provider Last Modified By Organization Details Last Modified Time Details Appointments None recorded . Lab lipid panel, serum 023 07/20/20 [facility], [address] [place] [address], [id number], 3 19:27:09 CMP, serum or plasma 023 07/20/20 [facility], [address] [place] [address], [address], 3 19:27:11 TSH, serum or plasma 023 07/20/20 [facility], [address] [place] [address], [address], 3 19:39:27 CBC w/ auto diff 023 07/20/20 [facility], [address] [place] [address], [address], 3 20:17:21 glycohem oglobin, total, blood 023 07/20/20 [facility], [address] [place] [address], [phone], 3 19:22:50 PSA, total, serum or plasma 023 07/20/20 [facility], [address] [place] [address], [address], 19:39:26 Referral None recorded . Procedures None recorded . Surgeries None recorded . Imaging None recorded . Medication Orders None recorded . Patient TargetsNo targets recorded. Patient InstructionsNo instructions recorded. Reason for Referral None Reported. Results Created Date Observation Date Name Description Value Unit Range Abnormal Flag Note LastModifiedBy Organization Detail LastModifiedTime 07/20/2007/20/2023 GLYCO HEMOG LOBIN A1C glyco HGB A1C 6.0 % 0.0-5. 6 high Not Available [facility] [address] [place] [address], [phone], 07/20/2023 19:22:50 07/20/20 23 07/20/2023 GLYCO HEMOG LOBIN A1C estimated avg. glucose 126 mg/dL _(sai c) normal A1c value s betwe en 5.7% to 6.4% indic ate predi abete s. Resul ts 6.5% or great er is diagn ostic of diabe renee. Ameri can [employer]abe renee [employer] i[employer] n (diab etes. org) Not Available [facility] [address] [place] [address], [address], 07/20/2023 19:22:50 07/20/20 23 07/20/2023 LIPID PROFI LE HDL cholesterol 57 mg/dL 40-242 normal Not Available [facility] [address] [place] [address], [address], 07/20/2023 19:27:09 07/20/20 23 07/20/2023 LIPID PROFI LE triglyceride s 88 mg/dL 0-149 normal TRIGL YCERI DE RANGE S ADIN L: < 150 BORDE RLINE HIGH: 150 - 199 HIGH: 200 - 499 VERY HIGH: > OR = 500 Not Available [facility] [address] [place] [address], [address], 07/20/2023 19:27:09 07/20/20 23 07/20/2023 LIPID PROFI LE cholesterol 240 mg/dL 0-199 high WILLIAN STERO L (TOTA L) RANGE S JUDY ABLE: < 200 BORDE RLINE : 200 - 239 HIGHE R RISK: > 239 Not Available [facility] [address] [place] [address], [address], 07/20/2023 19:27:09 07/20/20 23 07/20/2023 LIPID PROFI LE LDL cholesterol 165 mg/dL _(sai c) 0-99 high LDL WILLIAN STERO L RANGE S OPTIM AL: < 100 NEAR/ ABOVE OPTIM AL: 100 - 129 BORDE RLINE HIGH: 130 - 159 HIGH: 160 - 189 VERY HIGH: > OR = 190 Not Available [facility] [address] [place] [address], [address], 07/20/2023 19:27:09 07/20/20 23 07/20/2023 COMP. METAB OLIC PANEL glucose 105 mg/dL 74-100 high Not Available [facility] [address] [place] [address], [address], 07/20/2023 19:27:11 07/20/20 23 07/20/2023 COMP. METAB OLIC PANEL blood urea nitrogen 12 mg/dL 6-20 normal Not Available [facility] [address] [place] [address], [address], 07/20/2023 19:27:11 07/20/20 23 07/20/2023 COMP. METAB OLIC PANEL creatinine 1.17 mg/dL 0.70-1 .28 normal Not Available [facility] [address] [place] [address], [address], 07/20/2023 19:27:11 07/20/20 23 07/20/2023 COMP. METAB OLIC PANEL BUN/creatini ne ratio 10 (calc ) 10-20 normal Not Available [facility] [address] [place] [address], [address], 07/20/2023 19:27:11 07/20/20 23 07/20/2023 COMP. METAB OLIC PANEL sodium 139 mmol/ L 136-14 5 normal Not Available [facility] [address] [place] [address], [address], 07/20/2023 19:27:11 07/20/20 23 07/20/2023 COMP. METAB OLIC PANEL potassium 4.3 mmol/ L 3.4-5. 0 normal Not Available [facility] [address] [place] [address], [address], 07/20/2023 19:27:11 07/20/20 23 07/20/2023 COMP. METAB OLIC PANEL chloride 103 mmol/ L 98-107 normal Not Available [facility] [address] [place] [address], [address], 07/20/2023 19:27:11 07/20/20 23 07/20/2023 COMP. METAB OLIC PANEL carbon dioxide 26 mmol/ L 22-31 normal Not Available [facility] [address] [place] [address], [address], 07/20/2023 19:27:11 07/20/20 23 07/20/2023 COMP. METAB OLIC PANEL anion gap 10 (calc ) 7-25 normal Not Available [facility] [address] [place] [address], [address], 07/20/2023 19:27:11 07/20/20 23 07/20/2023 COMP. METAB OLIC PANEL calcium 9.5 mg/dL 8.6-10 .2 normal Not Available [facility] [address] [place] [address], [address], 07/20/2023 19:27:11 07/20/20 23 07/20/2023 COMP. METAB OLIC PANEL total protein 7.8 g/dL 6.4-8. 3 normal Not Available [facility] [address] [place] [address], [address], 07/20/2023 19:27:11 07/20/20 23 07/20/2023 COMP. METAB OLIC PANEL albumin 4.4 g/dL 3.5-5. 2 normal Not Available [facility] [address] [place] [address], [address], 07/20/2023 19:27:11 07/20/20 23 07/20/2023 COMP. METAB OLIC PANEL globulin 3.4 1.5-4. 5 normal Not Available [facility] [address] [place] [address], [address], 07/20/2023 19:27:11 07/20/20 23 07/20/2023 COMP. METAB OLIC PANEL albumin/glob ulin ratio 1.3 (calc ) 1.1-2. 5 normal Not Available [facility] [address] [place] [address], [address], 07/20/2023 19:27:11 07/20/20 23 07/20/2023 COMP. METAB OLIC PANEL bilirubin, total 0.6 mg/dL 0.1-1. 2 normal Not Available [facility] [address] [place] [address], [address], 07/20/2023 19:27:11 07/20/20 23 07/20/2023 COMP. METAB OLIC PANEL alkaline phosphatase 73 U/L 40-129 normal Not Available [facility] [address] [place] [address], [address], 07/20/2023 19:27:11 07/20/20 23 07/20/2023 COMP. METAB OLIC PANEL AST 25 U/L 0-40 normal Not Available [facility] [address] [place] [address], [address], 07/20/2023 19:27:11 07/20/20 23 07/20/2023 COMP. METAB OLIC PANEL ALT 23 U/L 0-41 normal Not Available [facility] [address] [place], [address], 07/20/2023 19:27:11 07/20/20 23 07/20/2023 COMP. METAB OLIC PANEL GFR 69 >= 60 normal NOT E New calcu latio n for GFR (CKD- EPI 2020) is formu lated witho ut race adjus tment facto rs at the recom menda tion of the Natio nal Kidne y Found ation and [place] m[employer] Socie ty of Nephr ology . This calcu latio n has not been valid ated in pregn ant women . For pedia tric patie nts refer to https :[email or web address] agosto.[email or web address] [email or web address] jessica/curry morales s/BROOKO QI/gf r_cal culat orPed Not Available [facility] [address] [place] [address], [address], 07/20/2023 19:27:11 07/20/20 23 07/20/2023 PROST ATE SPECI FIC AG prostate specific Ag 0.750 NG/mL 0.000- 4.100 normal Test metho d is based on WHO-s tanda rdize d calib ratio n using the Mary Nataly E801 rebecca zer. PSA resul ts by diffe rent test proce dures canno t be direc tly olvin red with one anoth er. . Not Available [facility] [address] [place], [address], 07/20/2023 19:39:26 07/20/20 23 07/20/2023 TSH TSH 2.320 u[IU] /mL 0.270- 4.200 normal Not Available [facility] [address] [place], [address], 07/20/2023 19:39:27 07/20/20 23 07/20/2023 COMPL ETE BLOOD COUNT white blood cells 7.1 10*3/ uL 3.8-10 .8 normal Not Available [facility] [address] [place], [address], 07/20/2023 20:17:21 07/20/20 23 07/20/2023 COMPL ETE BLOOD COUNT red blood cells 5.14 10*6/ uL 4.20-5 .80 normal Not Available [facility] [address] [place] [address], [address], 07/20/2023 20:17:21 07/20/20 23 07/20/2023 COMPL ETE BLOOD COUNT hemoglobin 15.9 g/dL 14.0-1 8.0 normal Not Available [facility] [address] [place] [address], [address], 07/20/2023 20:17:21 07/20/20 23 07/20/2023 COMPL ETE BLOOD COUNT hematocrit 46.1 % 40.0-5 2.0 normal Not Available [facility] [address] [place] [address], [address], 07/20/2023 20:17:21 07/20/20 23 07/20/2023 COMPL ETE BLOOD COUNT MCV 90 fL 80-100 normal Not Available [facility] [address] [place] [address], [address], 07/20/2023 20:17:21 07/20/20 23 07/20/2023 COMPL ETE BLOOD COUNT MCH 31 pg 26-35 normal Not Available [facility] [address] [place] [address], [address], 07/20/2023 20:17:21 07/20/20 23 07/20/2023 COMPL ETE BLOOD COUNT MCHC 35 g/dL 32-36 normal Not Available [facility] [address] [place] [address], [address], 07/20/2023 20:17:21 07/20/20 23 07/20/2023 COMPL ETE BLOOD COUNT RDW 13.5 % 11.0-1 5.0 normal Not Available [facility] [address] [place] [address], [address], 07/20/2023 20:17:21 07/20/20 23 07/20/2023 COMPL ETE BLOOD COUNT MPV 8.4 fL 6.2-10 .5 normal Not Available [facility] [address] [place] [address], [address], 07/20/2023 20:17:21 07/20/20 23 07/20/2023 COMPL ETE BLOOD COUNT platelet count 244 10*3/ uL 150-40 0 normal Not Available [facility] [address] [place] [address], [address], 07/20/2023 20:17:21 07/20/20 23 07/20/2023 COMPL ETE BLOOD COUNT neutrophil,a bsolute 3.5 10*3/ uL 1.6-8. 4 normal Not Available [facility] [address] [place] [address], [address], 07/20/2023 20:17:21 07/20/20 23 07/20/2023 COMPL ETE BLOOD COUNT lymphocyte,a bsolute 2.7 10*3/ uL 0.4-5. 1 normal Not Available [facility] [address] [place] [address], [address], 07/20/2023 20:17:21 07/20/20 23 07/20/2023 COMPL ETE BLOOD COUNT monocyte,abs olute 0.6 10*3/ uL 0.0-1. 2 normal Not Available [facility] [address] [place] [address], [address], 07/20/2023 20:17:21 07/20/20 23 07/20/2023 COMPL ETE BLOOD COUNT eosinophil,a bsolute 0.3 10*3/ uL 0.0-0. 8 normal Not Available [facility] [address] [place] [address], [address], 07/20/2023 20:17:21 07/20/20 23 07/20/2023 COMPL ETE BLOOD COUNT basophil,abs olute 0.0 10*3/ uL 0.0-0. 3 normal Not Available [facility] [address] [place] [address], [address], 07/20/2023 20:17:21 07/20/20 23 07/20/2023 COMPL ETE BLOOD COUNT % neutrophils 48.5 % 42.0-7 8.0 normal Not Available [facility] [address] [place] [address], [address], 07/20/2023 20:17:21 07/20/20 23 07/20/2023 COMPL ETE BLOOD COUNT % lymphocytes 38.7 % 11.0-4 7.0 normal Not Available [facility] [address] [place] [address], [address], 07/20/2023 20:17:21 07/20/20 23 07/20/2023 COMPL ETE BLOOD COUNT % monocytes 8.4 % 0.0-11 .0 normal Not Available [facility] [address] [place] [address], [address], 07/20/2023 20:17:21 07/20/20 23 07/20/2023 COMPL ETE BLOOD COUNT % eosinophils 3.7 % 0.0-7. 0 normal Not Available [facility] [address] [place] [address], [address], 07/20/2023 20:17:21 07/20/20 23 07/20/2023 COMPL ETE BLOOD COUNT % basophils 0.7 % 0.0-3. 0 normal Not Available [facility] [address] [place] [address], [address], 07/20/2023 20:17:21 07/20/20 23 07/20/2023 COMPL ETE BLOOD COUNT nucleated red cells 0.4 % 0.0-0. 9 normal Not Available [facility] [address] [place] [address], [address], 07/20/2023 20:17:21 07/20/20 23 07/20/2023 COMPL ETE BLOOD COUNT nucleated RBCs, absolute 0.03 10*3/ uL not estab. normal Not Available [facility] [address] [place], [address], 07/20/2023 20:17:21 Result Notes None recorded. Medical Equipment None Reported. Allergies No known drug allergies Medications Name Sig Start Date Stop Date Status Note LastModified by Organization Details LastModified Time atorvastatin 20 mg tablet TAKE 1 TABLET BY MOUTH ONCE DAILY active Not Available Not Available No t Available meloxicam 15 mg tablet 07/20 completed Not Available Not Available Not Available ondansetron HCl 4 mg tablet 07/20 completed Not Available Not Available Not Available aspirin 81 mg tablet,delaye d release 07/20 completed Not Available Not Available Not Available tramadol 50 mg tablet 07/20 completed Not Available Not Available Not Available acetaminophen 500 mg tablet 07/20 completed Not Available Not Available Not Available cefadroxil 500 mg capsule 07/20 completed Not Available Not Available Not Available docusate sodium 100 mg capsule 07/20 completed Not Available Not Available Not Available oxycodone 5 mg tablet 07/20 completed Not Available Not Available Not Available Vitals Date Recorded Body weight Body mass index (BMI) Body height Body temperature Heart rate Respiratory rate Oxygen saturation Oxygen saturation in Arterial blood by Pulse oximetry Systolic And Diastolic Provider Name and Address Organization Details Last Updated DateTime 3 44910.2 4 g 30.2 kg/m2 175.26 cm 98.1 [degF] 91 /min 14 /min 96 % 96 % 156/82 mm[Hg] [facility] 3 09:46:32 Date Recorded Body height Body mass index (BMI) Body weight Body temperature Heart rate Respiratory rate Oxygen saturation Oxygen saturation in Arterial blood by Pulse oximetry Systolic And Diastolic Provider Name and Address Organization Details Last Updated DateTime 3 175.26 cm 29.4 kg/m2 79781.2 8 g 97.8 [degF] 86 /min 16 /min 97 % 97 % 148/86 mm[Hg] [facility] 09:39:12 Social History Question Answer Notes LastModified by Organizat ion Details LastModified Time Tobacco Smoking Status Former Smoker Tiarra Swanson [place], [facility] 07/20/2023 09:44:07 What Was The Date Of Your Most Recent Tobacco Screening? 07/20/2023 [email or web address] Information not available 07/20/2023 Sex: Unknown Functional Status None recorded. Mental Status None recorded. Family History Nothing Reported. Medical History No medical history recorded. Past Encounters Encounter ID Performer Location Encounter Start Date Encounter Closed Date Diagnosis/Indication Diagnosis SNOMED-CT Code Diagnosis ICD10 Code Diagnosis IMO Codes Diagnosis Note [id number] LÓPEZ LAM, DO [facility] [address] [place] [address] 07/20/2023 09:40:26 07/20/2023 10:22:43 Adult health examination 122151866 Z00.00 utd on colon History of total knee arthroplasty 7047321656 105 Z96.659 doing well Elevated blood-pressure reading without diagnosis of hypertension 720669397 R03.0 watch BP at home. He will call in a few months let us know what his blood pressures running [id number] LÓPEZ LAM, DO [facility] [address] [place] [address] 08/03/2023 09:30:36 08/03/2023 09:54:54 Nausea 221320904 R11.0 sp hosp- CT showed mild L sided. small bowel enteritis. no GI panel preformed. no water stool.norm al BM this am.-I am not sure what happened, I think it is odd to have a viral gastroente ritis without any real nausea vomiting or diarrhea. Could have had an episode of partially ischemic bowel. But would have expected there to be some diarrhea with that which resolved with fluid. Did not recommend any further evaluation or interventi on at this point. If symptoms return recommend prompt reevaluati on Health Concerns Section Related Observation LastModified by Organization Detai ls LastModified Time None Recorded Concern Status LastModified by Organization Details LastModified Time None Recorded Advance Directives Directive None Recorded Payers Insurance Date Sequence Insurance Name Policy Number Policy Guerrero Covered Member ID Guerrero Member ID Guarantor Name 08/03/2023 1 [employer] [id number] R Bobby Landers [id number] Bobby Landers Notes Date Note Type Note Provider Name and Address Organization Details Recorded Time 07/20/2023 text/html Colonoscopy-- epression PHQ2-DonePVC 20(Pneumonia vaccine) over 65-Flu vaccine, 18-65 ( high dose over 65)- REFUSED [id number] male. healthy- no complaints.BP elevated. today. 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 LÓPEZ CANTOR, DO [facility] [place], [address], [facility] 07/20/2023 12:20:44 08/03/2023 text/html ROS as noted in the HPI Colonoscopy-Depres clarisa PHQ2- DonePVC 20(Pneumonia vaccine) over 65-Flu vaccine, 18-65 ( high dose over 65)- REfused Patient is 62-year-old male here for follow-up visit.He was recently hospitalized for suspected gastroenteritis. He went to the hospital he had a bad headache was weak, light sensitivity, had significant nausea and retching, no vomiting no diarrhea, had some mild bowel discomfort, his lactate was 5, CT scan showed possible small bowel enteritis. Was admitted for IV fluid and further evaluation, everything else looked okay and his symptoms dissipated and he was discharged. Otherwise he feels okay feels a little weak LÓPEZ CANTOR, DO [address] [place], [address], [facility] 08/03/2023 10:50:43
--- OUTSIDE RECORDS SUMMARY | 2025-08-02 17:10 | XMS_ITS | Clinical Summary ---
Author Organization [facility] Address [address] [place] [address] Phone [email or web address] Providers Care Marketing Assistant Manager Name Role Phone Unavailable Primary Care Provider Unavailabl e Allergies No known active allergies Medications No known medications Active Problems Problem Noted Date Diagnosed Date Astigmatism 11/27/2009 Overview (02/10/2018): Routine general medical exam ination at a health care facility 10/22/2009 Overview (02/10/2018): Contact dermatitis and other eczema due to other specified agent 05/01/2009 Overview (02/10/2018): Regular astigmatism 04/04/2008 Overview (02/10/2018): 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/04/2008 Overview (02/10/2018): Presbyopia 04/04/2008 Overview (02/10/2018): Health examination of defined subpopulation 10/15 Overview (02/10/2018): Other examination of ears and hearing 10/07/2007 Overview (02/10/2018): Immunizations Immunization Administration Dates Next Due Tdap (ADACEL BOOSTRIX) (CVX-115) 2017,09/15 Zoster (Zostavax) live (CVX-121) 2017 Social History Tobacco Use Types Packs/Day Years Used Date Smoking Tobacco: Never Assessed Intimate Partner Violence Answer Date R ecorded Insults You Not on file 12/26/2020 Threatens You Not on file 12/26/2020 Screams at You Not on file 12/26/2020 Physically Hurt Not on file 12/26/2020 Intimate Partner Violence Score Not on file 12/26/2020 Stress Answer Date Recorded Stress in your Life Not on file 12/26/2020 Dealing with Stress Not on file 12/26/2020 Sex and Gender Information Value Date Recorded Sex Assigned at Not on file Legal Sex Male 10:38 AM CDT Gender Identity Not on file Sexual Orientation Not on file Last Filed Vital Signs Vital Sign Reading Time Taken Comments Blood Pressure 108/76 11/17/2019 9:38 AM EST Pulse 82 11/17/2019 9:38 AM EST Temperature 36.9 C (98.5 F) 11/17/2019 9:38 AM EST Respiratory Rate - - Oxygen Saturation 95% 11/17/2019 9:38 AM EST Inhaled Oxygen Concentration - - Weight 92.4 kg (203 lb 12.8 oz) 11/17/2019 9:38 AM EST Height 172.7 cm (5' 8 ) 11/17/2019 9:38 AM EST Body Mass Index 30.99 11/17/2019 9:38 AM EST Plan of Treatment Health Maintenance Due Date Last Done Comments CT Colonography 1958 Colonoscopy 1958 Colorectal Cancer Screening Combo 1960 DNA Cologuard 1958 Dental Cleaning/Exam 1958 FIT or FOBT Test 1958 Sigmoidoscopy 1958 Pneumococcal: 50+ Years (1 o f 1 - PCV) 2008 Zoster Immunization (2 of 3) 12/01/2017 2017 Covid-19 Immunization (1 - 2024- season) 2025 Influenza Immunization (#1) 2025 Tetanus Diphtheria and Pertussis Immunization (2 - Td or Tdap) 2027 2017, 1960 HIB Immunization Aged Out No longer e ligible based on patient's age to complete this topic HPV Immunization Aged Out No longer e ligible based on patient's age to complete this topic Hepatitis A Immunization Aged Out No longer eligible based on patient's age to complete this topic Hepatitis B Immunization Aged Out No longer eligible based on patient's age to complete this topic Polio Immunization Aged Out No longer eligible based on patient's age to complete this topic
--- NOTE | 2025-08-02 18:26 | HMH.EDGENADL ---
Discharge Plan Disposition Patient Disposition: Home, Self-Care Prescriptions Prescriptions: No Action No Known Home Medications Referrals Follow up/Referrals: Jacob Aguilera MD [Referring, Medical] - See instructions Pranay Thomas [Primary Care Provider, Medical] - See instructions Activity Restrictions/Add. Instructions Additional Instructions/Restrictions: You had a postoperative wound dehiscence that was subsequently reclosed primarily with stitches but under a significant amount of tension. Given the difficulty of closing this wound again I would recommend that you keep the stitches in for an extended period of time and to have this managed by Dr. Aguilera to determine an exact time for them to come out I would recommend 2 weeks. Keep topical antibiotic ointment on the wound and return with any spreading redness pus coming from the wound or other concerns. Otherwise follow-up with Dr. Aguilera. Clinical Impressions Clinical Impression: Dehiscence of wound Instructions Patient Instructions: DI for Laceration Repair Print Language Print Language: Burkinan Discharge ED Provider: Kishore Esteban General Adult HPI General Chief complaint: Wound/Laceration Stated complaint: wound on back reopened Time Seen by Provider: 08/02/25 17:50 Mode of Arrival: Ambulatory Source of Information: Patient Description of Symptoms (Recalled from ER Triage Doc. by RN): Pt had a spot of cancer rremoved a week ago on thursday. Pt went for suture removal yesterday morning. Pt bent over today and busted the incision back open. History of Present Illness HPI narrative: Patient is a 64-year-old male presenting today with wound dehiscence after a skin cancer removal on his back [address] Aguilera in [place]. Wound popped open today. Placed a dressing on came to the emergency department as he was unable to get into his [employer]. Related Data Home Medications ?Medication ?Instructions ?Recorded ?Confirmed No Known Home Medications 08/02/25 08/02/25 Allergies Allergy/AdvReac Type Severity Reaction Status Date / Time No Known Allergies Allergy Verified 08/02/25 16:55 [facility] Disclaimer: The information contained in this section may have been updated after the patient was seen, as this information can be updated by other users. Social History Smoking Status: Never smoker alcohol intake: never current occupational status: other Travel in the last 8 weeks?: None ROS Obtained: Yes All systems reviewed & no additional complaints except as documented Physical Exam General General appearance: alert Respiratory Respiratory exam: Present normal lung sounds bilaterally Cardiovascular Cardiovascular exam: Present regular rate Back Exam Back 1 view image:  1. 4 cm gaping wound dehiscence clean bases no evidence of any purulence etc. Neurological Exam Neurological exam: Present alert and oriented X3 Medical Decision Making Medical Records Screening: Per USPSTF and CDC recommendations, given the prevalence of disease in our region, it is our hospital?s policy to screen for HIV and viral Hepatitis for all patients aged 18 and over and those with ongoing risk factors. Deni Inquiry Pt receiving controlled substance: No Vital Signs: 08/02/25 16:52 Temperature 98.0 F Temperature Source Oral Pulse Rate [Right] 100 H Respiratory Rate 16 Blood Pressure [Right Arm] 141/77 H Blood Pressure Mean [Right Arm] 98 Blood Pressure Source [Right Arm] Automatic Cuff Blood Pressure Position [Right Arm] Sitting 02 Sat by Pulse Oximetry 98 Oxygen Delivery Method Room Air Medical Decision Narrative: Patient with above history and physical very large gaping wound from a recent surgical removal of a skin cancer tissue is under a lot of tension and I am unable to reapproximate it with just lateral compression. Patient required multiple deep sutures and numerous superficial sutures under significant amounts of tension but we ultimately were able to reclose this primarily. I have advised that he follow back up with Doctor Willy James to discuss how long he wants the stitches to be in this time. No evidence of any infection wound was extensively irrigated. Topical antibiotic ointment and dressing was placed prior to discharge. Procedures Laceration Laceration 1: Site: back Size (cm): 4 Description: linear Depth: involves subcutaneous layer Local Anesthetic: lidocaine 1% and with epi Amount of anesthesia used (mL): 5 Pre-repair: wound explored Skin layer closed with: nylon Size (cm): 3-0 Number of sutures: 8 Technique: simple, interrupted Subcutaneous layer closed with: vicryl Size: 3-0 Number of sutures: 3 Technique: simple, interrupted Critical Care Critical Care Time Critical Care Time: No
--- NOTE | 2025-08-02 18:29 | PC.NURSE ---
telfa dressing applied with tegaderm.
[2025-08-02 18:32] VITALS: BP 145/72; PULSE 66; RESP 14; TEMP 36.7; O2SAT 99
== END 2025-08-02 18:33 | disposition home or self-care (01) ==
PROVIDERS: Emergency Provider Student in an Organized Health Care Education/Training Program; PCP Internal Medicine
DX: T81.31XA Disruption of external operation (surgical) wound, not elsewhere classified, initial encounter (principal); Z85.828 Personal history of other malignant neoplasm of skin
CPT/HCPCS: 99282; J2004